=== PATIENT | female | born 1955 | race Asian ===

== ENCOUNTER → 2016-06-27 | Outpatient (CLI) | payer MEDICAID | END | disposition home or self-care (01) | LOC: CVU 08:38 | PROVIDERS: ATTEND Internal Medicine Cardiovascular Disease | DX: I08.3 Combined rheumatic disorders of mitral, aortic and tricuspid valves (principal); I10 Essential (primary) hypertension; I73.9 Peripheral vascular disease, unspecified; I77.1 Stricture of artery; Z87.891 Personal history of nicotine dependence | CPT/HCPCS: 93306; 93922; 93930 ==

== ENCOUNTER → 2019-10-11 | Outpatient (CLI) | payer MEDICAID | END | disposition home or self-care (01) | LOC: CVU 12:41 | PROVIDERS: ATTEND Internal Medicine Cardiovascular Disease | DX: I65.23 Occlusion and stenosis of bilateral carotid arteries (principal); I08.8 Other rheumatic multiple valve diseases; E78.5 Hyperlipidemia, unspecified | CPT/HCPCS: 93306; 93880 ==

== ENCOUNTER 2020-06-25 13:32 | Emergency (ER) | payer MEDICAID ==
[~2020-06-25] VITALS: Ht 160 cm; Wt 55.3 kg
[2020-06-25 14:59] LABS: BASOPHILS % (AUTO) 1 % (0-1); EOSINOPHILS % (AUTO) 2 % (1-7); LYMPHOCYTES % (AUTO) 27 % (22-44); MEAN CORPUSCULAR HEMOGLOBIN 30.7 pg (27.0-34.8); MEAN CORPUSCULAR HGB CONC 33.6 g/dL (32.4-35.8); MEAN PLATELET VOLUME 8.3 fL (7.4-10.4); MONOCYTES % (AUTO) 8 % (2-9); NEUTROPHILS % (AUTO) 62 % (42-75); PLATELET COUNT 224 x10^3/uL (130-400); RED BLOOD COUNT 4.36 x10^6/uL (3.82-5.3); RED CELL DISTRIBUTION WIDTH 13.5 % (9.6-15.2)
[2020-06-25 15:00] LABS: ALBUMIN 3.9 g/dL (3.4-5.0); ANION GAP 3 mmol/L (5-15); CALCIUM 9.2 mg/dL (8.5-10.1); CHLORIDE 108 mmol/L (98-107); CREATININE 0.76 mg/dL (0.55-1.02); MD NO
[2020-06-25 15:05] LABS: TROPONIN I < 0.015 ng/mL (0.000-0.045)
--- NOTE | 2020-06-25 15:12 | NUR ---
ALL TESTS RESULTED. PT IS UP FOR RECHECK AT THIS TIME. PT RESTING ON GURNEY W/ CALL LIGHT IN REACH AND SIDE RAILS UPX2. FAMILY AT BEDSIDE. MARYSOL ARENAS.
[2020-06-25] MEDS ORDERED: OMNIPAQUE 350 MG/ML, 100ML BOTTLE ONE (16:54)
[2020-06-25 17:00] VITALS: BP 119/83
--- NOTE | 2020-06-25 17:34 | NUR ---
AT BEDSIDE FOR RECHECK S/P CTA.
--- NOTE | 2020-06-25 17:40 | NUR ---
Note patsy in EDM - 06/25/20 at 1811 by CBRUCIAGA PT REPORTS RELIEF IN NAUSEA AFTER SECOND DOSE OF ZOFRAN. 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 ERP UPDATED.
--- NOTE | 2020-06-25 18:10 | NUR ---
PT DISCONNECTED MONITORING, OUT IN PRIETO REQUESTING IV REMOVAL SO SHE MAY GO HOME. PIV REMOVED, CATH TIP INTACT. PT VERBALIZED UNDERSTANDING OF DC INSTRUCTIONS. RESP EVEN AND UNLABORED, MARYSOL.
== END 2020-06-25 18:21 | disposition home or self-care (01) ==
LOC: ED 16:34
DX: M79.602 Pain in left arm (principal); M54.2 Cervicalgia; R94.31 Abnormal electrocardiogram [ECG] [EKG]
CPT/HCPCS: 36415; 71045; 71275; 80048; 82040; 84484; 85025; 93005; 99285; Q9967

== ENCOUNTER → 2020-10-23 | Outpatient (CLI) | payer MEDICAID | END | disposition home or self-care (01) | LOC: CFH 14:10 | PROVIDERS: ATTEND Family Medicine | DX: Z12.31 Encounter for screening mammogram for malignant neoplasm of breast (principal); Z12.39 Encounter for other screening for malignant neoplasm of breast | CPT/HCPCS: 76641; 77063; 77067 ==